=== PATIENT | male | born 1950 | race Caucasian/White ===

== ENCOUNTER → 2023-10-12 07:29 | Outpatient (REF) | payer MEDICARE, OTHER, SELFPAY | LOC: MRI 3T 07:29 | PROVIDERS: ATTENDING PHYSICIAN Orthopaedic Surgery Hand Surgery; FAMILY PHYSICIAN Family Medicine | DX: M25.512 Pain in left shoulder (principal) | CPT/HCPCS: 73221 ==

== ENCOUNTER → 2023-10-30 07:41 | Outpatient (REF) | payer MEDICARE, OTHER, SELFPAY ==
[2023-10-30 08:53] LABS: Hematocrit 44.4 % (39.0-52.0); Hemoglobin 14.9 g/dL (13.0-18.0); Mean Corp Hgb Conc. 33.6 g/dL (33.0-37.0); Mean Corpuscular Hgb 30.3 pg (27.0-31.0); Mean Corpuscular Volume 90.4 fL (80.0-94.0); Mean Platelet Volume 9.2 fL (7.4-10.4); Platelet Count 219 10^3/uL (130-400); Red Blood Cell Count 4.91 10^6/uL (4.70-6.10); Red Cell Dist. Width 14.7 % (11.5-14.5)
[2023-10-30 09:21] LABS: Blood Urea Nitrogen 22 mg/dl (9-20); Calcium 10.1 mg/dl (8.4-10.2); Carbon Dioxide 23 mmol/L (22-30); Chloride 104 mmol/L (98-107); Glucose 108 mg/dl (70-99); Potassium 4.6 mmol/L (3.5-5.1); Sodium 137 mmol/L (135-145); eGFR > 60.00
== END ==
LOC: SDSPAT 07:41
PROVIDERS: ATTENDING PHYSICIAN Orthopaedic Surgery Hand Surgery; FAMILY PHYSICIAN Family Medicine
DX: Z01.818 Encounter for other preprocedural examination (principal)
CPT/HCPCS: 36415; 80048; 85027

== ENCOUNTER 2023-11-08 06:05 | Day surgery (SDC) | payer MEDICARE, OTHER, SELFPAY ==
[2023-10-30 07:50] VITALS: BMI 33.8
[2023-11-08] VITALS (9 sets, daily range): BP systolic 108–141; BP diastolic 76–99; BMI 33.2; BMI 33.8
[2023-11-08] MEDS: TYLENOL 1000 MG PO (07:35)
[2023-11-08] MEDS: NORMOSOL-R 1000 IV (07:36)
[2023-11-08] MEDS: CELEBREX 200 MG PO (07:38)
[2023-11-08] MEDS: SUBLIMAZE 25 MCG IV ×2 (11:02→11:16)
== END 2023-11-08 13:09 | disposition home or self-care (01) ==
LOC: SDS 06:05
PROVIDERS: ATTENDING PHYSICIAN Orthopaedic Surgery Hand Surgery; FAMILY PHYSICIAN Family Medicine
DX: S46.212A Strain of muscle, fascia and tendon of other parts of biceps, left arm, initial encounter (principal); X58.XXXA Exposure to other specified factors, initial encounter; M75.42 Impingement syndrome of left shoulder; M75.122 Complete rotator cuff tear or rupture of left shoulder, not specified as traumatic
CPT/HCPCS: 23430; 29827; 29826; C1713